=== PATIENT | male | born 1945 | race Caucasian/White ===

== ENCOUNTER 2019-11-12 08:20 | Outpatient (CLI) | payer MEDICARE, BC ==
[2019-11-12] VITALS (7 sets, daily range): BP systolic 136–164; BP diastolic 68–79
[~2019-11-12 08:20] MED LIST: OXYC-145 PO
[2019-11-12] MEDS ORDERED: regadenoson 0.4mg/5ml syringe IV ONE (10:25)
[2019-11-12] MEDS ORDERED: aminophylline 250mg/10ml inj. IV ONE (10:25)
== END 2019-11-12 23:59 | disposition home or self-care (01) ==
LOC: RAD 08:20
PROVIDERS: ATTEND Internal Medicine Cardiovascular Disease
DX: Z01.810 Encounter for preprocedural cardiovascular examination (principal); Z96.659 Presence of unspecified artificial knee joint
CPT/HCPCS: 78452; 93017; A9500; J0280; J2785